=== PATIENT | male | born 1960 | race Caucasian/White ===

== ENCOUNTER → 2016-04-21 | Outpatient (CLI) | payer OTHER ==
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
== END ==
LOC: BRMIMAGING 16:46
PROVIDERS: ATTEND Physician Assistant Medical
DX: M50.321 Other cervical disc degeneration at C4-C5 level (principal); M46.92 Unspecified inflammatory spondylopathy, cervical region
CPT/HCPCS: 72050-PO